=== PATIENT | male | born 1980 | race Caucasian/White ===

== ENCOUNTER 2018-12-07 11:06 | Emergency (ER) | payer SELFPAY ==
[~2018-12-07] VITALS: Ht 175.3 cm; Wt 70.3 kg
[~2018-12-07 11:06] MED LIST: OXYACE5T PO
[2018-12-07] MEDS ORDERED: Cleocin HCl300 MG PO (12:23)
[2018-12-07] MEDS ORDERED: Robaxin500 MG PO (12:23)
== END 2018-12-07 12:53 | disposition home or self-care (01) ==
LOC: ER 11:06
DX: S09.90XA Unspecified injury of head, initial encounter (principal); S16.1XXA Strain of muscle, fascia and tendon at neck level, initial encounter; K02.9 Dental caries, unspecified; Z88.0 Allergy status to penicillin; X58.XXXA Exposure to other specified factors, initial encounter
CPT/HCPCS: 72040; 99284-25

== ENCOUNTER 2020-10-31 01:28 | Emergency (ER) | payer SELFPAY ==
[~2020-10-31] VITALS: Ht 172.7 cm; Wt 74.8 kg
[~2020-10-31 01:28] MED LIST changes: +Cleocin HCl300 MG PO; +Robaxin500 MG PO
== END 2020-10-31 05:06 | disposition home or self-care (01) ==
LOC: ER 01:28
DX: B34.9 Viral infection, unspecified (principal); F17.210 Nicotine dependence, cigarettes, uncomplicated; Z88.0 Allergy status to penicillin
CPT/HCPCS: 36415; 71045; 86308; 87081; 87430; 99283-25; A9270